=== PATIENT | female | born 1980 | race African-American/Black ===

== ENCOUNTER 2017-02-13 10:56 | Emergency (ER) | payer SELFPAY ==
[~2017-02-13] VITALS: Ht 167.6 cm; Wt 56.4 kg
[~2017-02-13 10:56] MED LIST: CIPRO500 MG OR; CLINDAMYCIN150 MG OR; DARVOCET-N 100100 MG OR; FLEXERIL PO; FLUCONAZOLE150 MG PO; HYDROCHLOROT12.5 M1 OR; HYDROXYCHLOR200 MG PO; HYZAAR PO; HYZAAR1 TA2 PO; KETOROLAC10 MG OR; LORTAB 5 OR; MEDDOSEPAK OR; MEDDOSEPAK PO; NO HOME MEDS; PLAQUENIL200 MG OR; PREDNISONE10 MG OR; PREDNISONE10 MG PO; PROCARDIA XL30 MG PO; TRAMADOL HCL50 MG OR; TRAMADOL HYDROC50 MG PO; ULTRAM50 M1 PO; ULTRAM50 MG OR; VIBRAMYCIN100 MG OR; ZPAK PO
[2017-02-13] MEDS ORDERED: HYZAAR1 TA1 PO (11:10)
[2017-02-13 11:38] LABS: HEMATOCRIT 38.9 % (37.0-47.0); HEMOGLOBIN 12.5 g/dl (12.0-16.0); IMMATURE GRANULOCYTES 0.3 % (0.0-1.0); MEAN CORPUSCULAR HGB CONC 32.1 g/L CALC (32.0-36.0); NEUT# 5.27 thou/uL (2.00-7.15); RED BLOOD COUNT 4.47 mill/uL (4.20-5.60); RED CELL DISTRI WIDTH 15.3 % (11.5-15.5)
[2017-02-13 11:55] LABS: ALBUMIN 4.4 g/dL (3.2-5.0); ALKALINE PHOSPHATASE 91 u/l (38-126); AMYLASE 97 u/l (30-110); ANION GAP 16 (6-22 (CALC)); BILIRUBIN, TOTAL 0.5 mg/dL (0.0-1.4); BUN 11 mg/dL (7-17); BUN/CREATININE RATIO 13 (12-20 (CALC)); CALCIUM 9.3 mg/dL (8.4-10.2); CARBON DIOXIDE 23 mmol/l (22-30); CHLORIDE 109 mmol/l (95-108); CREATININE 0.9 mg/dL (0.5-1.0); GFR > 60 ML/MIN (>=60 (CALC)); GFR FOR AFR.AMER. > 60 ML/MIN (>=60 (CALC)); GLUCOSE 115 mg/dL (65-105); LIPASE 26 u/l (23-300); POTASSIUM 3.6 mmol/l (3.5-5.1); SGOT/AST 29 u/l (14-36); SGPT/ALT 22 u/l (9-52); SODIUM 144 mmol/l (137-146); TOTAL PROTEIN 7.7 g/dL (6.3-8.2)
[2017-02-13 12:08] LABS: MYOGLOBIN 27 ng/mL (0 - 62)
[2017-02-13] MEDS ORDERED: HYDROXYCHLOR200 MG PO (12:15)
[2017-02-13] MEDS ORDERED: IMODIUM2 MG PO (12:18)
[2017-02-13] MEDS ORDERED: ZOFRAN ODT4 MG PO (12:18)
[2017-02-13 12:28] VITALS: BP 167/107
== END 2017-02-13 12:55 | disposition home or self-care (01) | DRG 392 ==
LOC: ED 10:56
PROVIDERS: Emergency Medicine
DX: K52.9 Noninfective gastroenteritis and colitis, unspecified (principal); R11.2 Nausea with vomiting, unspecified; R10.9 Unspecified abdominal pain; R94.31 Abnormal electrocardiogram [ECG] [EKG]

== ENCOUNTER 2017-04-10 21:22 | Emergency (ER) | payer SELFPAY ==
[~2017-04-10] VITALS: Ht 167.6 cm; Wt 54.0 kg
[~2017-04-10 21:22] MED LIST changes: +HYZAAR1 TA1 PO; +IMODIUM2 MG PO; +ZOFRAN ODT4 MG PO
[2017-04-10 22:31] VITALS: BP 168/109
== END 2017-04-10 22:30 | disposition home or self-care (01) | DRG 605 ==
LOC: ED 21:22
PROC: 0HQGXZZ Repair Left Hand Skin, External Approach (ICD-10-PCS; principal; 2017-04-10)
DX: S61.211A Laceration without foreign body of left index finger without damage to nail, initial encounter (principal); W23.1XXA Caught, crushed, jammed, or pinched between stationary objects, initial encounter; Y92.009 Unspecified place in unspecified non-institutional (private) residence as the place of occurrence of the external cause

== ENCOUNTER 2018-03-20 17:09 | Emergency (ER) | payer SELFPAY ==
[~2018-03-20] VITALS: Ht 167.6 cm; Wt 61.4 kg
[2018-03-20 18:07] LABS: HEMATOCRIT 35.6 % (37.0-47.0); HEMOGLOBIN 10.9 g/dl (12.0-16.0); IMMATURE GRANULOCYTES 0.4 % (0.0-1.0); MEAN CORPUSCULAR HGB 24.6 pG CALC (26.0-32.0); MEAN CORPUSCULAR HGB CONC 30.6 g/L CALC (32.0-36.0); NEUT# 10.4 thou/uL (2.00-7.15); RED BLOOD COUNT 4.43 mill/uL (4.20-5.60); RED CELL DISTRI WIDTH 18.7 % (11.5-15.5)
[2018-03-20 18:09] LABS: MEAN CELL VOLUME 80.4 fL CALC (80.0-100.0)
[2018-03-20 18:18] LABS: ALKALINE PHOSPHATASE 102 u/l (38-126); ANION GAP 13 (6-22 (CALC)); BILIRUBIN, TOTAL 0.2 mg/dL (0.0-1.4); BUN 11 mg/dL (7-17); BUN/CREATININE RATIO 13 (12-20 (CALC)); CARBON DIOXIDE 26 mmol/l (22-30); CHLORIDE 107 mmol/l (95-108); CREATININE 0.8 mg/dL (0.5-1.0); GFR > 60 ML/MIN (>=60 (CALC)); GFR FOR AFR.AMER. > 60 ML/MIN (>=60 (CALC)); POTASSIUM 3.8 mmol/l (3.5-5.1); SGOT/AST 21 u/l (14-36); SGPT/ALT 28 u/l (9-52); SODIUM 142 mmol/l (137-146); TOTAL PROTEIN 7.7 g/dL (6.3-8.2)
[2018-03-20 18:27] LABS: MYOGLOBIN 19 ng/mL (0 - 62)
[2018-03-20 19:20] LABS: URINE BLOOD DIPSTICK TRACE-LYSED (NEGATIVE); URINE COLOR BROWN; URINE GLUCOSE - DIPSTICK NEGATIVE (NEGATIVE); URINE KETONE NEGATIVE (NEGATIVE); URINE LEUK ESTERASE NEGATIVE (NEGATIVE); URINE PH 5.5 (4.5-8.0); URINE PROTEIN - DIPSTICK 30 mg/dL (NEG-TRACE); URINE SPECIFIC GRAVITY >=1.030; URINE UROBILINOGEN - DIPSTICK 0.2 E.U./dL (0.2)
[2018-03-20 19:22] LABS: URINE CLARITY CLOUDY; URINE NITRITE - DIPSTICK POSITIVE (Negative)
[2018-03-20 19:23] LABS: URINE BILIRUBIN - DIPSTICK NEGATIVE (NEGATIVE)
[2018-03-20 19:27] LABS: URINE BACTERIA MANY hpf; URINE SQUAMOUS EPITHELIAL CELL FEW EPI/hpf (0-FEW)
[2018-03-20 19:39] VITALS: BP 133/78
[2018-03-20] MEDS ORDERED: CIPROFLOXACN500 MG PO (19:45)
== END 2018-03-20 19:53 | disposition home or self-care (01) | DRG 312 ==
LOC: ED 17:09
PROVIDERS: Family Medicine
DX: R55 Syncope and collapse (principal); R51 Headache; I10 Essential (primary) hypertension; F17.210 Nicotine dependence, cigarettes, uncomplicated; R50.9 Fever, unspecified; X58.XXXA Exposure to other specified factors, initial encounter; Y93.89 Activity, other specified; Y92.830 Public park as the place of occurrence of the external cause

== ENCOUNTER 2020-04-20 16:30 | Emergency (ER) | payer SELFPAY ==
[~2020-04-20] VITALS: Ht 167.6 cm; Wt 57.0 kg
[~2020-04-20 16:30] MED LIST changes: +CIPROFLOXACN500 MG PO; +FLEXERIL5 M1 PO; +TRAMADOL HCL50 MG PO
[2020-04-20 17:22] VITALS: BP 113/76
== END 2020-04-20 17:22 | disposition left against medical advice (07) | DRG 948 ==
LOC: ED 16:30
DX: R52 Pain, unspecified (principal); M32.9 Systemic lupus erythematosus, unspecified; I10 Essential (primary) hypertension; F17.200 Nicotine dependence, unspecified, uncomplicated; Z91.19 Patient's noncompliance with other medical treatment and regimen

== ENCOUNTER 2020-05-13 12:46 | Emergency (ER) | payer SELFPAY ==
[~2020-05-13] VITALS: Ht 165.1 cm; Wt 63.6 kg
[2020-05-13 13:30] LABS: HEMATOCRIT 33.5 % (37.0-47.0); HEMOGLOBIN 10.2 g/dl (12.0-16.0); IMMATURE GRANULOCYTES 0.4 % (0.0-5.0); MEAN CELL VOLUME 80.9 fL CALC (80.0-100.0); MEAN CORPUSCULAR HGB 24.6 pG CALC (26.0-32.0); MEAN CORPUSCULAR HGB CONC 30.4 g/dL CAL (32.0-36.0); NEUT# 4.55 thou/uL (2.00-7.15); RED BLOOD COUNT 4.14 mill/uL (4.20-5.60); RED CELL DISTRI WIDTH 22.1 % (11.5-15.5)
[2020-05-13 13:35] LABS: ALBUMIN 4.1 g/dL (3.2-5.0); ALKALINE PHOSPHATASE 95 u/l (38-126); ANION GAP 12 (6-22 (CALC)); BILIRUBIN, TOTAL 0.3 mg/dL (0.0-1.4); BUN 6 mg/dL (7-17); BUN/CREATININE RATIO 8 (12-20 (CALC)); CARBON DIOXIDE 28 mmol/l (22-30); CHLORIDE 99 mmol/l (95-108); CREATININE 0.7 mg/dL (0.5-1.0); GFR > 60 ML/MIN (>=60 (CALC)); GFR FOR AFR.AMER. > 60 ML/MIN (>=60 (CALC)); POTASSIUM 3.3 mmol/l (3.5-5.1); SGOT/AST 27 u/l (14-36); SODIUM 136 mmol/l (137-146); TOTAL PROTEIN 7.2 g/dL (6.3-8.2)
[2020-05-13 14:06] LABS: TSH, 3RD GENERATION 1.98 uIU/mL (0.47 - 4.68)
[2020-05-13] MEDS ORDERED: COZAAR25 MG PO (15:38)
[2020-05-13 16:06] VITALS: BP 156/99
== END 2020-05-13 16:07 | disposition home or self-care (01) | DRG 392 ==
LOC: ED 12:46
PROVIDERS: Family Medicine
DX: R13.10 Dysphagia, unspecified (principal); R07.9 Chest pain, unspecified; I10 Essential (primary) hypertension; E04.1 Nontoxic single thyroid nodule; F17.200 Nicotine dependence, unspecified, uncomplicated
CPT/HCPCS: Q9967

== ENCOUNTER 2020-12-17 | Emergency (ER) | payer SELFPAY ==
[~2020-12-17] MED LIST changes: +COZAAR25 MG PO
[2020-12-17 13:18] LABS: HEMATOCRIT 36.2 % (37.0-47.0); HEMOGLOBIN 11.7 g/dl (12.0-16.0); IMMATURE GRANULOCYTES 0.3 % (0.0-5.0); MEAN CORPUSCULAR HGB 31.5 pG CALC (26.0-32.0); MEAN CORPUSCULAR HGB CONC 32.3 g/dL CAL (32.0-36.0); NEUT# 8.76 thou/uL (2.00-7.15); RED BLOOD COUNT 3.71 mill/uL (4.20-5.60); RED CELL DISTRI WIDTH 21.2 % (11.5-15.5)
[2020-12-17 13:22] LABS: MEAN CELL VOLUME 97.6 fL CALC (80.0-100.0)
[2020-12-17 13:40] LABS: ALBUMIN 4.1 g/dL (3.2-5.0); ALKALINE PHOSPHATASE 166 u/l (38-126); ANION GAP 11 (6-22 (CALC)); BILIRUBIN, TOTAL 0.7 mg/dL (0.0-1.4); BUN 10 mg/dL (7-17); BUN/CREATININE RATIO 14 (12-20 (CALC)); CARBON DIOXIDE 33 mmol/l (22-30); CHLORIDE 98 mmol/l (95-108); CREATININE 0.7 mg/dL (0.5-1.0); GFR > 60 ML/MIN (>=60 (CALC)); GFR FOR AFR.AMER. > 60 ML/MIN (>=60 (CALC)); LIPASE 37 u/l (23-300); POTASSIUM 3.5 mmol/l (3.5-5.1); SGOT/AST 69 u/l (14-36); SODIUM 139 mmol/l (137-146); TOTAL PROTEIN 7.5 g/dL (6.3-8.2)
[2020-12-17 13:56] LABS: BETA-HCG, QUANT(RESULT NUMBER) <2 mIU/mL
[2020-12-17] MEDS ORDERED: ONDANSETRON4 MG PO (15:44)
[2020-12-17] MEDS ORDERED: HYZAAR1 TA1 PO (15:44)
[2020-12-17] MEDS ORDERED: CIPROFLOXACN500 MG PO (15:44)
[2020-12-17] MEDS ORDERED: METRONIDAZOL500 MG PO (15:44)
[2020-12-17] MEDS ORDERED: HYDROCO/APAP1 T10 PO (16:00)
== END 2020-12-17 16:05 | disposition home or self-care (01) | DRG 387 ==
PROVIDERS: Family Medicine
DX: K51.00 Ulcerative (chronic) pancolitis without complications (principal); I10 Essential (primary) hypertension; F17.200 Nicotine dependence, unspecified, uncomplicated
CPT/HCPCS: Q9967

== ENCOUNTER 2021-01-02 04:29 | Emergency (ER) | payer SELFPAY ==
[~2021-01-02 04:29] MED LIST changes: +HYDROCO/APAP1 T10 PO; +METRONIDAZOL500 MG PO; +ONDANSETRON4 MG PO
[2021-01-02 05:15] LABS: HEMATOCRIT 30.9 % (37.0-47.0); HEMOGLOBIN 9.8 g/dl (12.0-16.0); IMMATURE GRANULOCYTES 1.3 % (0.0-5.0); MEAN CELL VOLUME 97.2 fL CALC (80.0-100.0); MEAN CORPUSCULAR HGB 30.8 pG CALC (26.0-32.0); MEAN CORPUSCULAR HGB CONC 31.7 g/dL CAL (32.0-36.0); NEUT# 4.06 thou/uL (2.00-7.15); RED BLOOD COUNT 3.18 mill/uL (4.20-5.60); RED CELL DISTRI WIDTH 21.1 % (11.5-15.5)
[2021-01-02 05:30] LABS: ALBUMIN 3.6 g/dL (3.2-5.0); ALKALINE PHOSPHATASE 172 u/l (38-126); AMYLASE 123 u/l (30-110); ANION GAP 8 (6-22 (CALC)); BILIRUBIN, TOTAL 0.4 mg/dL (0.0-1.4); BUN 11 mg/dL (7-17); BUN/CREATININE RATIO 18 (12-20 (CALC)); CARBON DIOXIDE 32 mmol/l (22-30); CHLORIDE 101 mmol/l (95-108); CREATININE 0.6 mg/dL (0.5-1.0); GFR > 60 ML/MIN (>=60 (CALC)); GFR FOR AFR.AMER. > 60 ML/MIN (>=60 (CALC)); POTASSIUM 3.5 mmol/l (3.5-5.1); SGOT/AST 130 u/l (14-36); SODIUM 138 mmol/l (137-146); TOTAL PROTEIN 6.9 g/dL (6.3-8.2)
[2021-01-02] MEDS ORDERED: PERCOCET 5/325M1 TAB PO (07:28)
[2021-01-02] MEDS ORDERED: MACROBID100 M1 PO (07:28)
[2021-01-02] MEDS ORDERED: PROTONIX40 M2 PO (07:28)
[2021-01-02 07:34] VITALS: BP 195/122
== END 2021-01-02 07:58 | disposition home or self-care (01) | DRG 392 ==
LOC: ED 04:29
PROVIDERS: Emergency Medicine
DX: R10.13 Epigastric pain (principal); R10.33 Periumbilical pain; N39.0 Urinary tract infection, site not specified; I10 Essential (primary) hypertension; T46.5X6A Underdosing of other antihypertensive drugs, initial encounter; T36.8X6A Underdosing of other systemic antibiotics, initial encounter; T37.3X6A Underdosing of other antiprotozoal drugs, initial encounter; F17.210 Nicotine dependence, cigarettes, uncomplicated; Z91.128 Patient's intentional underdosing of medication regimen for other reason
CPT/HCPCS: J1956; Q9967; S0164

== ENCOUNTER 2021-01-04 | Emergency (ER) | payer SELFPAY ==
[~2021-01-04] MED LIST changes: +MACROBID100 M1 PO; +PERCOCET 5/325M1 TAB PO; +PROTONIX40 M2 PO
[2021-01-04 00:31] LABS: URINE BILIRUBIN - DIPSTICK NEGATIVE (NEGATIVE); URINE BLOOD DIPSTICK NEGATIVE (NEGATIVE); URINE COLOR YELLOW; URINE GLUCOSE - DIPSTICK NEGATIVE (NEGATIVE); URINE KETONE NEGATIVE (NEGATIVE); URINE LEUK ESTERASE NEGATIVE (NEGATIVE); URINE PROTEIN - DIPSTICK NEGATIVE (NEG-TRACE); URINE UROBILINOGEN - DIPSTICK 0.2 E.U./dL (0.2)
[2021-01-04 00:33] LABS: URINE NITRITE - DIPSTICK NEGATIVE (Negative)
[2021-01-04 00:47] LABS: HEMATOCRIT 30.5 % (37.0-47.0); HEMOGLOBIN 9.7 g/dl (12.0-16.0); IMMATURE GRANULOCYTES 0.2 % (0.0-5.0); MEAN CELL VOLUME 97.4 fL CALC (80.0-100.0); MEAN CORPUSCULAR HGB CONC 31.8 g/dL CAL (32.0-36.0); NEUT# 6.21 thou/uL (2.00-7.15); RED BLOOD COUNT 3.13 mill/uL (4.20-5.60); RED CELL DISTRI WIDTH 21.5 % (11.5-15.5)
[2021-01-04 01:12] LABS: ALBUMIN 3.5 g/dL (3.2-5.0); ALKALINE PHOSPHATASE 133 u/l (38-126); AMYLASE 106 u/l (30-110); ANION GAP 7 (6-22 (CALC)); BILIRUBIN, TOTAL 0.5 mg/dL (0.0-1.4); BUN 6 mg/dL (7-17); BUN/CREATININE RATIO 9 (12-20 (CALC)); CARBON DIOXIDE 33 mmol/l (22-30); CHLORIDE 100 mmol/l (95-108); CREATININE 0.7 mg/dL (0.5-1.0); GFR > 60 ML/MIN (>=60 (CALC)); GFR FOR AFR.AMER. > 60 ML/MIN (>=60 (CALC)); LIPASE 97 u/l (23-300); POTASSIUM 3.6 mmol/l (3.5-5.1); SGOT/AST 73 u/l (14-36); SODIUM 136 mmol/l (137-146); TOTAL PROTEIN 6.5 g/dL (6.3-8.2)
== END 2021-01-04 04:39 | disposition home or self-care (01) | DRG 392 ==
PROVIDERS: Emergency Medicine
DX: R10.30 Lower abdominal pain, unspecified (principal); I10 Essential (primary) hypertension; F17.200 Nicotine dependence, unspecified, uncomplicated
CPT/HCPCS: Q9967; S0164

== ENCOUNTER 2021-02-22 05:02 | Emergency (ER) | payer SELFPAY ==
[~2021-02-22] VITALS: Ht 167.6 cm; Wt 59.0 kg
[2021-02-22 05:02] VITALS: BP 169/107
[2021-02-22 05:51] LABS: URINE BILIRUBIN - DIPSTICK NEGATIVE (NEGATIVE); URINE BLOOD DIPSTICK NEGATIVE (NEGATIVE); URINE COLOR YELLOW; URINE GLUCOSE - DIPSTICK NEGATIVE (NEGATIVE); URINE KETONE NEGATIVE (NEGATIVE); URINE LEUK ESTERASE NEGATIVE (NEGATIVE); URINE PROTEIN - DIPSTICK NEGATIVE (NEG-TRACE); URINE SPECIFIC GRAVITY >=1.030; URINE UROBILINOGEN - DIPSTICK 0.2 E.U./dL (0.2)
[2021-02-22 05:53] LABS: IMMATURE GRANULOCYTES 0.4 % (0.0-5.0); MEAN CORPUSCULAR HGB 27.6 pG CALC (26.0-32.0); MEAN CORPUSCULAR HGB CONC 31.8 g/dL CAL (32.0-36.0); NEUT# 5.3 thou/uL (2.00-7.15); RED BLOOD COUNT 4.78 mill/uL (4.20-5.60); RED CELL DISTRI WIDTH 21.3 % (11.5-15.5)
[2021-02-22 05:55] LABS: HEMATOCRIT 41.5 % (37.0-47.0); HEMOGLOBIN 13.2 g/dl (12.0-16.0); MEAN CELL VOLUME 86.8 fL CALC (80.0-100.0); URINE NITRITE - DIPSTICK NEGATIVE (Negative)
== END 2021-02-22 06:13 | disposition left against medical advice (07) | DRG 556 ==
LOC: ED 05:02
PROVIDERS: Family Medicine
DX: M25.552 Pain in left hip (principal); M25.551 Pain in right hip; M25.562 Pain in left knee; M25.561 Pain in right knee; F17.210 Nicotine dependence, cigarettes, uncomplicated; I10 Essential (primary) hypertension; T46.5X6A Underdosing of other antihypertensive drugs, initial encounter; T37.8X6A Underdosing of other specified systemic anti-infectives and antiparasitics, initial encounter; Z91.128 Patient's intentional underdosing of medication regimen for other reason; Z91.19 Patient's noncompliance with other medical treatment and regimen
CPT/HCPCS: J0131

== ENCOUNTER 2024-11-19 08:33 | Emergency (ER) | payer OTHER ==
[2024-11-19] VITALS (9 sets, daily range): BP systolic 91–113; BP diastolic 53–73
[~2024-11-19] VITALS: Ht 167.6 cm; Wt 63.6 kg
[2024-11-19] MEDS ORDERED: SODIUM CHLORIDE 0.9% 1,000 ML IV ONE (08:40)
[2024-11-19] MEDS ORDERED: ACETAMINOPHEN 500 MG TAB PO ONE (09:10)
[2024-11-19 09:33] LABS: BASO% 0.2 % (0-3); HEMATOCRIT 41.4 % (37.0-47.0); HEMOGLOBIN 13.4 g/dl (12.0-16.0); IMMATURE GRANULOCYTES 0.2 % (0.0-5.0); MEAN CELL VOLUME 91.6 fL CALC (80.0-100.0); MEAN CORPUSCULAR HGB 29.6 pG CALC (26.0-32.0); MEAN CORPUSCULAR HGB CONC 32.4 g/dL CAL (32.0-36.0); MONO% 13.6 % (2-13); NEUT# 4.36 thou/uL (2.00-7.15); RED BLOOD COUNT 4.52 mill/uL (4.20-5.60); RED CELL DISTRI WIDTH 12.4 % (11.5-15.5)
[2024-11-19 09:47] LABS: ALBUMIN 4.4 g/dL (3.2-5.0); ALKALINE PHOSPHATASE 103 u/l (38-126); ANION GAP 12 (6-22 (CALC)); BUN 12 mg/dL (7-17); BUN/CREATININE RATIO 13 (12-20 (CALC)); CARBON DIOXIDE 31 mmol/l (22-30); CHLORIDE 97 mmol/l (95-108); ESTIMATED GFR 71 ML/MIN (>=90 (CALC)); POTASSIUM 3.2 mmol/l (3.5-5.1); SGOT/AST 30 u/l (14-36); SODIUM 138 mmol/l (137-146)
[2024-11-19 09:49] LABS: BILIRUBIN, TOTAL 0.4 mg/dL (0.02-1.3)
[2024-11-19 10:18] LABS: TSH, 3RD GENERATION 1.93 uIU/mL (0.47 - 4.68)
[2024-11-19 11:16] LABS: URINE BLOOD DIPSTICK Negative (NEGATIVE); URINE GLUCOSE - DIPSTICK Negative (NEGATIVE); URINE KETONE Negative (NEGATIVE); URINE LEUK ESTERASE Negative (NEGATIVE); URINE NITRITE - DIPSTICK Negative (Negative); URINE PROTEIN - DIPSTICK 100 mg/dL (NEG-TRACE); URINE SPECIFIC GRAVITY >=1.030; URINE UROBILINOGEN - DIPSTICK 0.2 E.U./dL (0.2)
[2024-11-19 11:18] LABS: URINE COLOR Yellow
[2024-11-19 11:27] LABS: URINE BACTERIA RARE hpf; URINE MUCUS MODERATE hpf (NONE-FEW); URINE RBC 0-2 RBC/hpf (0-5); URINE SQUAMOUS EPITHELIAL CELL FEW EPI/hpf (0-FEW); URINE WBC 0-2 WBC/hpf (0-5)
[2024-11-19] MEDS ORDERED: PAXLOVID PO (11:54)
[2024-11-19] MEDS ORDERED: traMADol HCL 50 MG/TAB PO ONE (11:55)
== END 2024-11-19 12:17 | disposition home or self-care (01) | DRG 179 ==
LOC: ED 08:33
PROVIDERS: Family Medicine
DX: U07.1 COVID-19 (principal); R51.9 Headache, unspecified; R55 Syncope and collapse; R05.9 Cough, unspecified; R52 Pain, unspecified; I10 Essential (primary) hypertension; F17.200 Nicotine dependence, unspecified, uncomplicated